=== PATIENT | male | born 1980 | race Two or more races ===

== ENCOUNTER 2017-03-10 09:16 | Emergency (ER) | payer OTHER ==
[~2017-03-10] VITALS: Ht 180.3 cm; Wt 111.6 kg
[2017-03-10] MEDS ORDERED: DILAUDID IM STA (09:33)
[2017-03-10] MEDS ORDERED: TORADOL IM STA (09:33)
[2017-03-10] MEDS ORDERED: ZOFRAN ODT SL STA (09:33)
--- NOTE | 2017-03-10 09:36 | ER.PDOC ---
General Chief Complaint: Extremities Stated Complaint: R ARM INJURY/ PAIN Time seen by MD: 09:33 Source: patient History of Present Illness Occurred: last week Where: other (GYM) Severity: moderate Associated Symptoms: tingling Modifying Factors: pain on movement Allergies: Coded Allergies: No Known Allergies (Unverified , 07/27/13) Past Medical History Medical History: no pertinent history Surgical History: knee, shoulder Social History Smoking: cigarettes, less than 1 pack/day Alcohol Use: occasionally Drug Use: none Review of Systems All Other Systems: Reviewed and Negative Physical Exam General Appearance: Alert, No Apparent Distress Hand: see diagram, tenderness Wrist: see diagram, tenderness, limited ROM due to pain Forearm/Elbow: see diagram, limited ROM by pain Arm/Shoulder: see diagram, tenderness, limited ROM by pain Neuro/Vasc/Tendon: sensation nml, motor nml, no vascular compromise, tendon function nml Skin: warm/dry Head/ENT: nml inspection, pharynx nml Neck/Back: nml inspection, non-tender Respiratory: chest non-tender, breath sounds nml CVS: heart sounds normal Abdomen: non-tender, no organomegaly Splinting Splinting : Splint: volar Departure Time of Disposition: 11:11 Impression: Primary Impression: Tenosynovitis of hand Additional Impression: Tenosynovitis of shoulder Referrals: PCP,UNKNOWN (PCP) PRIMARY CARE PROVIDER BONITA TOLBERT MD Mar 10, 2017 09:36
[2017-03-10] MEDS ORDERED: ZOFRAN ODT ONE (09:41)
[2017-03-10] MEDS ORDERED: TORADOL ONE (09:41)
[2017-03-10] MEDS ORDERED: TRIPLE ANTIBIOTIC OINTMENT TP ONE (10:15)
[2017-03-10 10:22] VITALS: BP 113/48
== END 2017-03-10 10:17 | disposition home or self-care (01) ==
LOC: ER 09:16
DX: M65.9 Synovitis and tenosynovitis, unspecified (principal); M65.811 Other synovitis and tenosynovitis, right shoulder; F17.210 Nicotine dependence, cigarettes, uncomplicated
CPT/HCPCS: 29125; 96372; 99283; J1885; Q0162

== ENCOUNTER 2017-12-26 21:13 | Emergency (ER) | payer OTHER ==
[~2017-12-26] VITALS: Ht 180.3 cm; Wt 105.8 kg
[2017-12-26 21:20] VITALS: BP 154/96
[2017-12-26 21:41] LABS: BASOPHIL % 0.3 % (0.0-0.2); EOSINOPHIL # 0.2 10^3/uL (0.0-0.2); EOSINOPHIL % 1.3 % (0.0-5.0); HEMOGLOBIN 18.1 g/dL (13.9-16.3); LYMPHOCYTES # 1.6 10^3/uL (1.0-4.8); MEAN CELL HGB 30.5 pg (26-34); MEAN CELL HGB CONCENTRATION 32.1 g/dL (33-37); MEAN CORP VOLUME 94.9 fL (78-100); MEAN PLATELET VOLUME 8.3 fL (7.8-11.0); MONOCYTES # 0.9 10^3/uL (0.3-0.8); MONOCYTES % 6.8 % (5.0-12.0); NEUTROPHIL # 10.6 10^3/uL (1.8-7.7); NEUTROPHILS % 79.3 % (41.0-85.0); RED CELL DISTRIBUTION WIDTH 13.9 % (11.5-14.5); WHITE BLOOD CELL 13.4 10^3/uL (4.5-11.0)
--- NOTE | 2017-12-26 21:44 | ER.PDOC ---
General Chief Complaint: Abdomen Pain Stated Complaint: ABD PAIN, N/V TRAVEL OUT OF US: No Time seen by MD: 21:15 Source: patient Exam Limitations: no limitations History of Present Illness Initial Comments Pt presents with n/v with diarrhea x 2 days. He gave a history of back and muscle pain x 3 weeks Pt does a lot of muscle building exercise and he is on parenteral steroid.. Timing/Duration: 24 hours Severity: moderate Associated Symptoms: nausea/vomiting Allergies: Coded Allergies: No Known Allergies (Unverified , 07/27/13) Past Medical History Medical History: peptic ulcer disease Surgical History: cholecystectomy, shoulder Family History Significant Family History: no pertinent family hx Social History Smoking: less than 1 pack/day Alcohol Use: occassionally Drug Use: other Review of Systems Constitutional: no symptoms reported EENTM: no symptoms reported Respiratory: no symptoms reported Cardiovascular: no symptoms reported Gastrointestinal: abdominal pain, diarrhea, nausea, vomiting Genitourinary: no symptoms reported Musculoskeletal: back pain, muscle pain Skin: no symptoms reported Physical Exam General Appearance: No Apparent Distress, WD/WN EENT: eyes nml inspection, nml ENT inspection, pharynx nml Neck: Non-Tender, Full Range of Motion, Supple, Normal Inspection Respiratory: chest non-tender, lungs clear, normal breath sounds, no respiratory distress CVS: reg rate & rhythm, no murmur, no gallop, pulses nml, nml capillary refill Gastrointestinal: Normal Bowel Sounds, No Organomegaly, No Pulsatile Mass, Soft , Tenderness (Epigastric tenderness. No guarding. No rebound tenderness.) Back: Normal Inspection, No CVA Tenderness Extremities: Normal Range of Motion, Non-Tender, Normal Inspection, No Pedal Edema Neurologic/Psychiatric: social service coordinator II-XII NML as Tested, No Motor/Sensory Deficits, Alert, Normal Mood/Affect, Oriented x 3 Skin: Normal Color, Warm/Dry Lymphatic: No Adenopathy Results/Orders Results/Orders Laboratory Tests Test 12/26/17 21:30 12/26/17 21:45 12/26/17 21:55 12/26/17 22:45 White Blood Count 13.4 10^3/uL (4.5-11.0) Red Blood Count 5.93 10^6/uL (4.50-5.90) Hemoglobin 18.1 g/dL (13.9-16.3) Hematocrit 56.3 % (37.0-53.0) Mean Corpuscular Volume 94.9 fL (78-100) Mean Corpuscular Hemoglobin 30.5 pg (26-34) Mean Corpuscular Hemoglobin Concent 32.1 g/dL (33-37) Red Cell Distribution Width 13.9 % (11.5-14.5) Platelet Count 374 10^3/uL (150-400) Mean Platelet Volume 8.3 fL (7.8-11.0) Neutrophils (%) (Auto) 79.3 % (41.0-85.0) Lymphocytes (%) (Auto) 12.0 % (24.0-44.0) Monocytes (%) (Auto) 6.8 % (5.0-12.0) Neutrophils # (Auto) 10.6 10^3/uL (1.8-7.7) Lymphocytes # (Auto) 1.6 10^3/uL (1.0-4.8) Monocytes # (Auto) 0.9 10^3/uL (0.3-0.8) Absolute Immature Granulocyte (auto 0.04 10^3 u/L (0-2) Eosinophils % 1.3 % (0.0-5.0) Basophils % 0.3 % (0.0-0.2) Basophils # 0.0 10^3/uL (0.0-0.1) Eosinophil Count 0.2 10^3/uL (0.0-0.2) Sodium Level 137 mmol/L (132-145) Potassium Level 4.5 mmol/L (3.6-5.2) Chloride Level 103.0 mmol/L (96-109) Carbon Dioxide Level 25.9 mmol/L (20.0-32) Anion Gap 12.6 Blood Urea Nitrogen 13 mg/dL (7-18) Creatinine 0.86 mg/dL (0.59-1.40) Estimated GFR () 122.5 (>/=60) BUN/Creatinine Ratio 15.0 Glucose Level 97 mg/dL (70-110) Calcium Level 8.4 mg/dL (8.4-10.5) Total Bilirubin 1.8 mg/dL (0.2-1.0) Aspartate Amino Transf (AST/SGOT) 39 U/L (0-35) Alanine Aminotransferase (ALT/SGPT) 80 U/L (12-78) Alkaline Phosphatase 57 U/L (50-136) Total Creatine Kinase 248 U/L (39-308) Total Protein 6.6 g/dL (6.4-8.2) Albumin 3.7 g/dL (3.4-5.0) Globulin 2.9 Amylase Level 41 U/L (25-115) Lipase 150 U/L (114-286) Percent Immature Gran (Cell Imm) 0.30 % (0.00-0.50) Urine Collection Type VOID Urine Color JOSÉ MIGUEL (YELLOW) Urine Appearance CLEAR (CLEAR) Urine Bilirubin NEGATIVE MG/DL (NEGATIVE) Urine Ketones 15 mg/dL (NEGATIVE) Urine Specific [place] 1.020 (1.005-1.035) Urine pH 6 (5.0-6.0) Urine Protein NEGATIVE (NEGATIVE) Urine Urobilinogen 4.0 (NEGATIVE) Urine Nitrate NEGATIVE (NEGATAIVE) Urine Leukocyte Esterase NEGATIVE (NEGATIVE) Urine Blood 25 1+ (NEGATIVE) Urine RBC 2-5 RBC/HPF (NONE SEEN) Urine WBC NONE SEEN WBC/HPF (0-2) Urine Squamous Epithelial Cells NONE SEEN #/HPF (FEW) Urine Bacteria NONE SEEN (NONE SEEN) Urine Glucose NORMAL (NEGATIVE) Group A Streptococcus Screen NEGATIVE (NEGATIVE) Influenza Virus Type A Antibody NEGATIVE (NEG) Influenza Virus Type B Antibody NEGATIVE (NEG) Administered Medications Medications (Trade) Dose Ordered Sig/Cecilia Route PRN Reason Start Time Stop Time Status Last Admin Dose Admin Ketorolac Tromethamine (Toradol) 30 mg STAT STAT IM 12/26/17 22:48 12/26/17 22:49 DC 12/26/17 22:50 Progress Progress Flu tests:neg. Strep screen: neg. UA: rbc-2-5/hpf. CBC: wbc-13.4. Departure Time of Disposition: 23:28 Disposition: 01 HOME, SELF-CARE Impression: Primary Impression: Gastritis Additional Impressions: Hematuria Viral syndrome Condition: Stable Referrals: PCP,UNKNOWN (PCP) PRIMARY CARE PROVIDER Additional Instructions: For high fluid intake. Take Tylenol for pain/fever. f/u with PCP-microscopic hematuria. Duration or Time Spent with Pa: 45mins. GEORGINA MARKS MD Dec 26, 2017 21:44
[2017-12-26 21:48] LABS: BILIRUBIN,URINE NEGATIVE (NEGATIVE)
[2017-12-26 22:00] LABS: CALCIUM 8.4 mg/dL (8.4-10.5); CARBON DIOXIDE 25.9 mmol/L (20.0-32)
[2017-12-26 22:02] LABS: APPEARANCE,URINE CLEAR (CLEAR); UA COLOR AMBER (YELLOW)
[2017-12-26 22:03] LABS: WBC,URINE NONE SEEN WBC/HPF (0-2)
[2017-12-26] MEDS ORDERED: TORADOL ONE (22:37)
[2017-12-26] MEDS ORDERED: TORADOL IM STA (22:48)
[2017-12-26 23:49] VITALS: BP 136/72
== END 2017-12-26 23:47 | disposition home or self-care (01) ==
LOC: ER 21:13
DX: K29.70 Gastritis, unspecified, without bleeding (principal); B34.9 Viral infection, unspecified; R31.9 Hematuria, unspecified; F17.200 Nicotine dependence, unspecified, uncomplicated; M79.1 Myalgia; Z87.11 Personal history of peptic ulcer disease; Z90.49 Acquired absence of other specified parts of digestive tract
CPT/HCPCS: 36415; 80053; 81000; 82150; 82550; 83690; 85025; 86710; 87070; 87880; 96372; 99284; J1885